=== PATIENT | female | born 1975 | race Caucasian/White ===

== ENCOUNTER → 2016-07-05 | Outpatient (REF) | payer BC ==
[~2016-07-05] MED LIST: BUPR300T34 PO; TYLE325T5 PO; VITMTA PO
[2016-07-05 17:50] LABS: FOLATE 21.4 NG/ML
== END ==
LOC: M LAB REF 16:32
PROVIDERS: ATTEND Nurse Practitioner Family
DX: R41.3 Other amnesia (principal)

== ENCOUNTER → 2017-03-16 | Outpatient (REF) | payer BC | LOC: M LAB REF 09:03 | PROVIDERS: ATTEND Physician Assistant | DX: J02.9 Acute pharyngitis, unspecified (principal) ==

== ENCOUNTER 2017-07-13 02:42 | Emergency (ER) | payer BC ==
[2017-07-13] MEDS ORDERED: GLUCAGON FOR INJ 1 MG VIAL (J1610) IV (03:30)
[2017-07-13] MEDS ORDERED: NS 1,000 ML IV (03:45)
[2017-07-13] MEDS ORDERED: ONDANSETRON 4MG/2ML VIAL (J2405) IV (03:45)
== END 2017-07-13 04:17 | disposition home or self-care (01) ==
LOC: M ED 02:42
DX: T18.120A Food in esophagus causing compression of trachea, initial encounter (principal); Y92.89 Other specified places as the place of occurrence of the external cause; K22.2 Esophageal obstruction; Z79.899 Other long term (current) drug therapy; Z86.59 Personal history of other mental and behavioral disorders
CPT/HCPCS: 96374

== ENCOUNTER 2017-10-18 06:55 | Day surgery (SDC) | payer BC ==
[2017-10-18] MEDS: NS 1,000 ML IV (07:00)
[2017-10-18] MEDS ORDERED: PROPOFOL 200 MG/20 ML VIAL As Ordered (07:16)
== END 2017-10-18 08:47 | disposition home or self-care (01) ==
LOC: M OPP 08:47
DX: R13.10 Dysphagia, unspecified (principal); K22.2 Esophageal obstruction; K22.8 Other specified diseases of esophagus; R63.0 Anorexia; R63.4 Abnormal weight loss; F32.9 Major depressive disorder, single episode, unspecified; Z79.899 Other long term (current) drug therapy; Z80.8 Family history of malignant neoplasm of other organs or systems; Z80.0 Family history of malignant neoplasm of digestive organs; Z80.7 Family history of other malignant neoplasms of lymphoid, hematopoietic and related tissues
CPT/HCPCS: 43249

== ENCOUNTER 2018-01-28 19:20 | Emergency (ER) | payer SELFPAY, BC ==
[2018-01-28 20:10] LABS: BASO % 0.5 % (0.0-1.0); EOS # 0.3 10^3/uL (0.0-0.50); EOS % 4.1 % (0.0-3.0); HEMATOCRIT 39.8 % (36.0-47.0); IMMATURE GRANULOCYTE % 0.3 % (0-3.0); LYMPH # 2.4 10^3/uL (1.5-4.5); LYMPH % 33.2 % (24.0-44.0); MEAN CORPUSCULAR HGB CONC 32.7 g/dl (32.0-36.5); MEAN CORPUSCULAR VOLUME 82.6 fl (80.0-96.0); MONO # 0.5 10^3/uL (0.0-0.8); MONO % 7.1 % (0.0-5.0); NEUTROPHILS % 54.8 % (36.0-66.0); PLATELET COUNT, AUTOMATED 281 10^3/uL (150-450); RED BLOOD COUNT 4.82 10^6/uL (4.00-5.40); RED CELL DISTRIBUTION WIDTH 12.7 % (11.5-14.5); WHITE BLOOD COUNT 7.3 10^3/uL (4.0-10.0)
[2018-01-28 20:13] LABS: BEDSIDE GLUCOSE 84 MG/DL (70-105)
[2018-01-28 20:27] LABS: D-DIMER QUANT 315.3 ng/ml (<500)
[2018-01-28 20:36] LABS: ANION GAP 8 MEQ/L (8-16); BLOOD UREA NITROGEN 13 MG/DL (7-18); CALCIUM LEVEL 8.7 MG/DL (8.5-10.1); CARBON DIOXIDE LEVEL 24 MEQ/L (21-32); CHLORIDE LEVEL 110 MEQ/L (98-107); CPK CREATINE PHOSPHOKINASE 103 U/L (26-192); CREATININE FOR GFR 1.12 MG/DL (0.55-1.30); GLOMERULAR FILTRATION RATE 56.5 (>58); GLUCOSE, FASTING 99 MG/DL (70-100); SODIUM LEVEL 142 MEQ/L (136-145); TROPONIN I < 0.02 NG/ML (< 0.10)
[2018-01-28 20:37] LABS: CK-MB VALUE MASS < 1.0 NG/ML (<3.6); MB/CK RELATIVE INDEX 0.97 (< OR =4)
[2018-01-28] MEDS: ALBUTEROL SULFATE 2.5 MG/0.5 ML INH NEB SOLN INH (20:38)
== END 2018-01-28 21:24 | disposition home or self-care (01) ==
LOC: M ED 19:20
DX: F41.9 Anxiety disorder, unspecified (principal); I49.9 Cardiac arrhythmia, unspecified; K21.9 Gastro-esophageal reflux disease without esophagitis; F32.9 Major depressive disorder, single episode, unspecified; Z79.899 Other long term (current) drug therapy
CPT/HCPCS: 71046

== ENCOUNTER → 2020-06-01 | Outpatient (CLI) | payer SELFPAY ==
[~2020-06-01] MED LIST changes: -BUPR300T34 PO; +BUPR300T92 PO; +OMEP40CA97 PO; +VENTAER INH
== END ==
LOC: M LABSMTC 14:04
PROVIDERS: ATTEND Pediatrics
DX: Z20.828 Contact with and (suspected) exposure to other viral communicable diseases (principal)

== ENCOUNTER 2020-12-07 12:18 | Emergency (ER) | payer BC, SELFPAY ==
[~2020-12-07] VITALS: Ht 165.1 cm; Wt 61.7 kg
[2020-12-07] MEDS ORDERED: SILVER NITRATE APPLICATOR TOP ONE (15:30)
[2020-12-07] MEDS ORDERED: BOOSTRIX/ADACEL VACCINE (DIPHTH/PERTUSS/ACELL/TETANUS) 0.5ML SYR IM ONE (15:55)
[2020-12-07 16:26] VITALS: BP 126/79
== END 2020-12-07 16:28 | disposition home or self-care (01) ==
LOC: M ED 12:18
DX: S61.213A Laceration without foreign body of left middle finger without damage to nail, initial encounter (principal); W27.2XXA Contact with scissors, initial encounter; Y92.22 Religious institution as the place of occurrence of the external cause; Y93.9 Activity, unspecified; Y99.9 Unspecified external cause status; K21.9 Gastro-esophageal reflux disease without esophagitis

== ENCOUNTER → 2021-04-23 | Outpatient (REF) | payer BC ==
[~2021-04-23] MED LIST changes: +OMEP40CA4 PO; -OMEP40CA97 PO
== END ==
LOC: M LAB REF 14:17
PROVIDERS: ATTEND Physician Assistant
DX: B34.1 Enterovirus infection, unspecified (principal); B34.8 Other viral infections of unspecified site

== ENCOUNTER → 2021-08-10 | Outpatient (CLI) | payer BC | LOC: M WHC 10:18 | PROVIDERS: ATTEND Physician Assistant Medical | DX: Z12.31 Encounter for screening mammogram for malignant neoplasm of breast (principal) ==

== ENCOUNTER 2021-10-23 12:15 | Emergency (ER) | payer BC ==
[~2021-10-23] VITALS: Ht 165.1 cm; Wt 62.2 kg
[2021-10-23 12:16] VITALS: BP 113/73
[2021-10-23] MEDS ORDERED: LIDOCAINE 2% MDV 20ML VIAL SC ONE (12:40)
== END 2021-10-23 13:31 | disposition home or self-care (01) ==
LOC: M ED 12:15
DX: S61.411A Laceration without foreign body of right hand, initial encounter (principal); W26.8XXA Contact with other sharp object(s), not elsewhere classified, initial encounter; Y92.22 Religious institution as the place of occurrence of the external cause; Y93.9 Activity, unspecified; Y99.9 Unspecified external cause status; K21.9 Gastro-esophageal reflux disease without esophagitis

== ENCOUNTER → 2022-12-02 | Outpatient (CLI) | payer BC | LOC: M WHC 08:26 | PROVIDERS: ATTEND Physician Assistant Medical | DX: Z12.31 Encounter for screening mammogram for malignant neoplasm of breast (principal) ==

== ENCOUNTER → 2023-11-29 | Outpatient (REF) | payer BC ==
[~2023-11-29] MED LIST changes: +BUPR-597 PO; -BUPR300T92 PO
== END ==
LOC: M SFHCWAGY 17:07
PROVIDERS: ATTEND Nurse Practitioner Family
DX: N94.10 Unspecified dyspareunia (principal)

== ENCOUNTER → 2024-02-13 | Outpatient (REF) | payer BC | LOC: M LAB REF 11:49 | PROVIDERS: ATTEND Physician Assistant Medical | DX: R61 Generalized hyperhidrosis (principal) ==

== ENCOUNTER 2024-02-20 09:10 | Outpatient (RCR) | payer BC | END 2024-02-24 | LOC: M PT 09:10 | PROVIDERS: ATTEND Nurse Practitioner Family | DX: N94.10 Unspecified dyspareunia (principal) ==

== ENCOUNTER 2024-03-15 08:04 | Outpatient (RCR) | payer BC | END 2024-03-25 | LOC: M PT 08:04 | PROVIDERS: ATTEND Nurse Practitioner Family | DX: N94.10 Unspecified dyspareunia (principal) ==

== ENCOUNTER 2024-04-04 10:23 | Outpatient (RCR) | payer BC | END 2024-04-25 | LOC: M PT 10:23 | PROVIDERS: ATTEND Nurse Practitioner Family | DX: N94.10 Unspecified dyspareunia (principal) ==

== ENCOUNTER → 2024-06-04 | Outpatient (REF) | payer BC | LOC: M SFHCWAGY 12:27 | PROVIDERS: ATTEND Nurse Practitioner Family | DX: N73.9 Female pelvic inflammatory disease, unspecified (principal); R30.0 Dysuria ==

== ENCOUNTER → 2024-09-11 | Outpatient (REF) | payer BC ==
[2024-09-14 18:07] LABS: HPV APTIMA Not Detected (Not Detected)
== END ==
LOC: M SFHCWAGY 15:15
PROVIDERS: ATTEND Nurse Practitioner Family
DX: Z12.4 Encounter for screening for malignant neoplasm of cervix (principal); Z77.9 Other contact with and (suspected) exposures hazardous to health
CPT/HCPCS: 87624; G0123

== ENCOUNTER → 2024-09-11 | Outpatient (CLI) | payer BC | LOC: M WHC 12:46 | PROVIDERS: ATTEND Nurse Practitioner Family | DX: Z12.31 Encounter for screening mammogram for malignant neoplasm of breast (principal) ==

== ENCOUNTER 2024-09-16 08:25 | Outpatient (RCR) | payer OTHER | END 2024-09-23 | LOC: M PT 08:25 | PROVIDERS: ATTEND Nurse Practitioner Family | DX: M25.551 Pain in right hip (principal) ==

== ENCOUNTER 2024-10-21 09:15 | Outpatient (RCR) | payer OTHER ==
[~2024-10-21 09:15] MED LIST changes: -BUPR-597 PO; +BUPR-766 PO
== END 2024-10-23 ==
LOC: M PT 09:15
PROVIDERS: ATTEND Nurse Practitioner Family
DX: M25.551 Pain in right hip (principal)

== ENCOUNTER 2025-02-20 08:30 | Outpatient (RCR) | payer OTHER ==
[~2025-02-20 08:30] MED LIST changes: +GABA-1172 PO; +MULTTAB61 PO; +NAPR-837 PO; +OMEP40CA5 PO
== END 2025-02-23 ==
LOC: M PT 08:30
PROVIDERS: ATTEND Orthopaedic Surgery
DX: M25.551 Pain in right hip (principal)

== ENCOUNTER 2025-02-27 10:03 | Day surgery (SDC) | payer BC ==
[~2025-02-27] VITALS: Ht 165.1 cm; Wt 66.8 kg
[2025-02-27] MEDS ORDERED: LIDOCAINE 2% 100 MG/5 ML SDV (FOR ANES.) As Ordered ONE (11:17)
[2025-02-27 11:37] VITALS: TEMP 98.5
[2025-02-27 11:58] VITALS: BP 100/57; O2SAT 99
== END 2025-02-27 12:16 | disposition home or self-care (01) ==
LOC: M OPP 10:03
PROVIDERS: ATTEND Surgery
DX: Z12.11 Encounter for screening for malignant neoplasm of colon (principal); K62.89 Other specified diseases of anus and rectum; K52.89 Other specified noninfective gastroenteritis and colitis; Z79.899 Other long term (current) drug therapy

== ENCOUNTER 2025-03-21 08:27 | Outpatient (RCR) | payer OTHER | END 2025-03-25 | LOC: M PT 08:27 | PROVIDERS: ATTEND Orthopaedic Surgery | DX: M25.551 Pain in right hip (principal) ==

== ENCOUNTER 2025-03-28 08:27 | Outpatient (RCR) | payer OTHER | END 2025-04-25 | LOC: M PT 08:27 | PROVIDERS: ATTEND Orthopaedic Surgery | DX: M25.551 Pain in right hip (principal) ==

== ENCOUNTER → 2025-06-05 | Outpatient (CLI) | payer BC ==
[2025-06-05 13:33] LABS: BASO # 0.0 10^3/uL (0.0-0.2); BASO % 0.6 % (0.0-1.0); EOS # 0.4 10^3/uL (0.0-0.5); EOS % 6.4 % (0.0-3.0); LYMPH # 1.6 10^3/uL (1.5-5.0); LYMPH % 24.9 % (24.0-44.0); MONO # 0.4 10^3/uL (0.0-0.8); MONO % 6.2 % (2.0-8.0); NEUTROPHILS # 4.1 10^3/uL (1.5-8.5); NEUTROPHILS % 61.7 % (36.0-66.0); PLATELET COUNT, AUTOMATED 374 10^3/uL (150-450)
[2025-06-05 13:38] LABS: CHOLESTEROL LEVEL 231 MG/DL (<200); CHOLESTEROL RISK RATIO 3.27 (<5); IRON (FE) 103 UG/DL (50-170); LDL CHOLESTEROL 145.6 MG/DL (<100); NON-HDL-C 160.4 MG/DL; TRIGLYCERIDES LEVEL 74 MG/DL (<150)
[2025-06-05 13:42] LABS: FREE T4 1.23 NG/DL (0.89-1.76)
[2025-06-05 13:43] LABS: LUTEINIZING HORMONE 76.5 mIU/ML; PROLACTIN 9.07 NG/ML
[2025-06-05 13:44] LABS: ESTRADIOL < 19.0 PG/ML; PROGESTERONE 0.50 NG/ML
[2025-06-05 14:16] LABS: ESTIMATED AVERAGE GLUCOSE 111.0 MG/DL (60-110)
[2025-06-07 06:52] LABS: SEX HORMONE BINDING GLOBULIN 67 nmol/L (17-124)
== END ==
LOC: M WUC 08:08
PROVIDERS: ATTEND Nurse Practitioner Family
DX: N95.1 Menopausal and female climacteric states (principal)